=== PATIENT | male | born 1990 | race Caucasian/White ===

== ENCOUNTER 2020-07-17 13:33 | Emergency (ER) | payer SELFPAY ==
[~2020-07-17] VITALS: Ht 182.9 cm; Wt 71.1 kg
[2020-07-17 13:39] VITALS: BP 94/60
[2020-07-17] MEDS ORDERED: NEOSPORIN OINT. PKT 1 PACKET ONE (13:59)
--- NOTE | 2020-07-17 14:25 | NUR ---
Patient given discharge instructions and they have confirmed that they understand the instructions. Patient ambulatory with steady gait.
== END 2020-07-17 14:26 | disposition home or self-care (01) ==
LOC: ED 13:50
DX: L02.414 Cutaneous abscess of left upper limb (principal); Z48.00 Encounter for change or removal of nonsurgical wound dressing
CPT/HCPCS: 99282

== ENCOUNTER 2021-02-14 09:12 | Emergency (ER) | payer SELFPAY ==
[~2021-02-14] VITALS: Ht 195.6 cm; Wt 72.0 kg
[2021-02-14 09:25] VITALS: BP 114/73
--- NOTE | 2021-02-14 09:33 | NUR ---
JESSICA Heck at bedside for eval.
== END 2021-02-14 09:57 | disposition home or self-care (01) ==
LOC: ED 09:48
DX: K08.89 Other specified disorders of teeth and supporting structures (principal)
CPT/HCPCS: 99283